=== PATIENT | male | born 1960 | race Caucasian/White ===

== ENCOUNTER 2017-04-14 09:38 | Inpatient (IN) | payer OTHER ==
[~2017-04-14] VITALS: Ht 170.2 cm; Wt 68.2 kg
[2017-04-14 10:49] LABS: BASOPHIL % 0.2 % (0-2); RED CELL DISTRIBUTION WIDTH 12.3 % (11.5-14.5)
[2017-04-14 10:52] LABS: PLATELET COUNT 124 x10^3mcL (130-400)
[2017-04-14 11:03] LABS: CALCIUM 9.2 mg/dL (8.5-10.1); CARBON DIOXIDE 27.7 mmol/L (21-32); CHLORIDE SERUM 98 mmol/L (98-107); CREATININE SERUM 0.9 mg/dL (0.7-1.3); GFR1 > 60 mL/min; GLUCOSE SERUM 261 mg/dL (74-106); POTASSIUM SERUM 3.7 mmol/L (3.5-5.1); SODIUM SERUM 135 mmol/L (136-145)
[2017-04-14 11:03] LABS: microscopic required? YES; urine erythrocyte NEGATIVE (NEGATIVE)
[2017-04-14 11:12] LABS: ALBUMIN 3.4 g/dL (3.4-5.0); ALKALINE PHOSPHATASE 76 U/L (46-116); ALT/SGPT 17 U/L (16-63); AST/SGOT 13 U/L (15-37); BILIRUBIN TOTAL 0.6 mg/dL (0.20-1.00); TOTAL PROTEIN, SERUM 7.7 g/dL (6.4-8.2)
[2017-04-14] MEDS ORDERED: TYLENOL (11:56)
[2017-04-14 13:15] LABS: T3 TOTAL 0.72 ng/mL
[2017-04-14 13:18] LABS: FREE T4 1.15 ng/dL (0.76-1.46); T4(THYROXINE) 8.5 ug/dL (4.7-13.3)
[2017-04-14 13:36] VITALS: BP 101/62
[2017-04-14 13:39] LABS: CHOLESTEROL/HDL RATIO 2.4; MAGNESIUM 1.7 mg/dL (1.8-2.4); PHOSPHOROUS 3.1 mg/dL (2.5-4.9)
[2017-04-14 17:45] VITALS: BP 126/64
[2017-04-14 21:24] VITALS: BP 124/58
[2017-04-15 03:22] LABS: CALCIUM 8.4 mg/dL (8.5-10.1); CARBON DIOXIDE 25.1 mmol/L (21-32); CHLORIDE SERUM 103 mmol/L (98-107); CREATININE SERUM 0.6 mg/dL (0.7-1.3); GFR1 > 60 mL/min; GLUCOSE SERUM 175 mg/dL (74-106); MAGNESIUM 1.6 mg/dL (1.8-2.4); POTASSIUM SERUM 3.7 mmol/L (3.5-5.1); SODIUM SERUM 136 mmol/L (136-145)
[2017-04-15 03:46] LABS: BASOPHIL % 0.4 % (0-2); RED CELL DISTRIBUTION WIDTH 12.7 % (11.5-14.5)
[2017-04-15 04:06] LABS: PLATELET COUNT 106 x10^3mcL (130-400)
[2017-04-15 06:02] VITALS: BP 112/62
[2017-04-15 09:13] VITALS: BP 107/69
[2017-04-15 13:03] VITALS: BP 125/66
[2017-04-15 16:14] VITALS: BP 109/62
[2017-04-15 21:20] VITALS: BP 112/72
[2017-04-16 06:16] VITALS: BP 127/70
[2017-04-16 06:54] LABS: CALCIUM 8.8 mg/dL (8.5-10.1); CARBON DIOXIDE 27.3 mmol/L (21-32); CHLORIDE SERUM 106 mmol/L (98-107); CREATININE SERUM 0.6 mg/dL (0.7-1.3); GFR1 > 60 mL/min; GLUCOSE SERUM 146 mg/dL (74-106); MAGNESIUM 1.6 mg/dL (1.8-2.4); POTASSIUM SERUM 4.1 mmol/L (3.5-5.1); SODIUM SERUM 142 mmol/L (136-145)
[2017-04-16 09:20] VITALS: BP 129/74
[2017-04-16] MEDS ORDERED: LIPI10 PO (13:00)
[2017-04-16] MEDS ORDERED: BAY PO (13:00)
[2017-04-16] MEDS ORDERED: LISINOPRIL5 MG PO (13:35)
[2017-04-16] MEDS ORDERED: GLU5 PO (13:37)
[2017-04-16] MEDS ORDERED: NEXIUM20 MG PO (13:39)
[2017-04-16] MEDS ORDERED: GLU850 PO (13:40)
== END 2017-04-16 15:00 | disposition home or self-care (01) | DRG 205 ==
LOC: ED 09:38 → DU 11:51
PROVIDERS: Emergency Medicine; ADMIT Family Medicine
DX: M94.0 Chondrocostal junction syndrome [Tietze] (principal); N17.0 Acute kidney failure with tubular necrosis; D68.69 Other thrombophilia; E87.1 Hypo-osmolality and hyponatremia; E11.65 Type 2 diabetes mellitus with hyperglycemia; E11.42 Type 2 diabetes mellitus with diabetic polyneuropathy; E83.42 Hypomagnesemia; R80.9 Proteinuria, unspecified; I51.7 Cardiomegaly; J06.9 Acute upper respiratory infection, unspecified; Z68.23 Body mass index [BMI] 23.0-23.9, adult; Z87.891 Personal history of nicotine dependence; Z91.14 Patient's other noncompliance with medication regimen
CPT/HCPCS: 83880; 84439; J0696; J1815; J1885; J3475; J3490; J7030; J7613; J7644; Q0092